=== PATIENT | female | born 1950 | race Caucasian/White ===

== ENCOUNTER 2020-01-12 15:30 | Inpatient (IN) | payer OTHER ==
[~2020-01-12] VITALS: Ht 160 cm; Wt 51.0 kg
--- NOTE | 2020-01-12 15:51 | NUR ---
DR Koenig at the bedside for MSE.
[2020-01-12] MEDS ORDERED: ALBUTEROL SULFATE 2.5 MG/3 ML NEBU NEB ONE (16:00)
[2020-01-12] MEDS ORDERED: IPRATROPIUM BROMIDE 0.5 MG/2.5 ML NEBU NEB ONE (16:00)
[2020-01-12] MEDS ORDERED: IPRATROPIUM BROMIDE 0.5 MG/2.5 ML NEBU ONE (16:15)
[2020-01-12] MEDS ORDERED: ALBUTEROL SULFATE 2.5 MG/3 ML NEBU ONE (16:15)
[2020-01-12 16:26] LABS: BASOPHILS # (AUTO) 0.3 K/uL (0.0-8.0); BASOPHILS % (AUTO) 1.2 % (0.0-2.0); HEMATOCRIT 35.8 % (31.2-41.9); HEMOGLOBIN 12.1 g/dL (10.9-14.3); LYMPHOCYTES # (AUTO) 0.2 K/uL (20.0-40.0); LYMPHOCYTES % (AUTO) 0.7 % (20.5-51.5); MEAN CORPUSCULAR HEMOGLOBIN 28.5 uug (24.7-32.8); MEAN CORPUSCULAR HGB CONC 34 g/dL (32.3-35.6); MEAN CORPUSCULAR VOLUME 84.8 fL (75.5-95.3); MONOCYTES # (AUTO) 0.2 K/uL (2.0-10.0); NEUTROPHILS # (AUTO) 21.2 K/uL (1.8-8.9); NEUTROPHILS % (AUTO) 97.1 % (38.5-71.5); PLATELET COUNT (AUTO) 203 K/uL (179-408); RED BLOOD CELL COUNT(AUTO) 4.23 MIL/uL (3.63-4.92); WHITE BLOOD COUNT (AUTO) 21.9 K/uL (3.8-11.8)
[2020-01-12 16:38] LABS: POTASSIUM 4.3 mmol/L (3.5-5.1)
[2020-01-12] MEDS ORDERED: methylPREDNISolone SOD SUCC 125 MG/2 ML VIAL IV ONE (16:45)
[2020-01-12 16:54] LABS: BILIRUBIN,DIRECT 0.1 mg/dL (0.0-0.2); BILIRUBIN,TOTAL 0.4 mg/dL (0.2-1.0); TOTAL PROTEIN, SERUM 6.5 g/dL (6.4-8.2)
[2020-01-12] MEDS ORDERED: methylPREDNISolone SOD SUCC 125 MG/2 ML VIAL ONE (17:01)
--- NOTE | 2020-01-12 17:53 | NUR ---
Dr Fairbanks spoke to ER MD for TELE admit.
--- NOTE | 2020-01-12 18:40 | NUR ---
Pt resting in bed,talking on the phone, no acute distress noted.
--- NOTE | 2020-01-12 19:13 | NUR ---
pt ok to admit under dr layton Dx: copd exacerbation tele rm pending hand off to floor pt at ra, +intact iv to r wrist coming in and out of the room easily redirectable
--- NOTE | 2020-01-12 19:32 | NUR ---
still waiting call back from RN at floor FOR REPORT
--- NOTE | 2020-01-12 19:53 | NUR ---
HAND OFF AND SBAR GIVEN TO PURVI ORTIZ
--- NOTE | 2020-01-12 20:01 | NUR ---
PT TRANSPORTED TO FLOOR VIA WHEELCHAIR ACC BY SAMI
[2020-01-12 20:30] VITALS: BP 156/87
[2020-01-12] MEDS ORDERED: ACETAMINOPHEN 325 MG TABLET PO PRN (20:45)
[2020-01-12] MEDS ORDERED: Z GUARD REMEDY PASTE 57 GM TUBE TOP PRN (20:45)
[2020-01-12] MEDS ORDERED: ZOLPIDEM 5 MG TABLET PO PRN (20:45)
[2020-01-12] MEDS ORDERED: DEXTROSE 50% 50 ML DISP.SYRIN IV PRN ×2 (20:45→22:15)
[2020-01-12] MEDS ORDERED: INSULIN REGULAR, HUMAN 300 UNIT/3 ML VIAL SQ PRN (20:45)
[2020-01-12] MEDS ORDERED: HYDROCODONE/APAP 5-325MG TABLET PO PRN (20:45)
[2020-01-12] MEDS ORDERED: LORAZEPAM 1 MG TABLET PO PRN (20:45)
[2020-01-12] MEDS ORDERED: ONDANSETRON 4 MG/2 ML VIAL IV PRN (20:45)
[2020-01-12] MEDS ORDERED: MAGNESIUM HYDROXIDE 30 ML LIQUID UDC PO PRN (20:45)
[2020-01-12] MEDS ORDERED: BLOOD SUGAR DIAGNOSTIC 1 EACH STRIP VI SCH (21:00)
[2020-01-12] MEDS ORDERED: TRAZODONE 100 MG TABLET PO SCH (21:00)
--- NOTE | 2020-01-12 21:00 | NUR ---
Received patient from ER. Dx; acute COPD exacerbation. Patient is A/Ox4. Ambulates with a steady gait. No signs of acute distress noted. SOB noted 95% on room air. Patient stated that breathing treatment from ER helped. Heplock on the right forearm is intact and patent. Patient oriented to unit and room. Safety measures initiated. Bed is low and locked, call light within reach. Will continue to monitor.
[2020-01-12] MEDS: GUAIFENESIN LA 600 MG TABLET.SA PO SCH (21:34)
[2020-01-12] MEDS: AZITHROMYCIN 250 MG TABLET PO SCH (21:34)
[2020-01-12] MEDS ORDERED: INSULIN REGULAR, HUMAN 300 UNITS/3 ML VIAL SQ PRN (22:15)
--- NOTE | 2020-01-12 22:17 | NUR ---
Checked patients blood sugar twice, was 583. Gave 10 unit insulin and spoke to Dr. Fairbanks. He is aware of this patient because she just came from [place] and he was her doctor there. Ordered to change sliding scale to aggressive. Will continue to monitor.
[2020-01-12] MEDS: QUETIAPINE FUMARATE 200 MG TABLET PO SCH (23:15)
[2020-01-13 00:45] VITALS: BP 137/78
[2020-01-13] MEDS: ALBUTEROL SULFATE 2.5 MG/3 ML NEBU NEB SCH ×6 (01:08→21:36)
[2020-01-13 04:00] VITALS: BP 146/65
[2020-01-13 06:24] LABS: BASOPHILS % (AUTO) 0.3 % (0.0-2.0); HEMATOCRIT 34.1 % (31.2-41.9); HEMOGLOBIN 11.6 g/dL (10.9-14.3); LYMPHOCYTES # (AUTO) 0.3 K/uL (20.0-40.0); LYMPHOCYTES % (AUTO) 3.6 % (20.5-51.5); MEAN CORPUSCULAR HEMOGLOBIN 29.4 uug (24.7-32.8); MEAN CORPUSCULAR HGB CONC 34 g/dL (32.3-35.6); MEAN CORPUSCULAR VOLUME 86.4 fL (75.5-95.3); MONOCYTES # (AUTO) 0.3 K/uL (2.0-10.0); MONOCYTES % (AUTO) 2.7 % (0.0-11.0); NEUTROPHILS # (AUTO) 8.8 K/uL (1.8-8.9); NEUTROPHILS % (AUTO) 93.4 % (38.5-71.5); PLATELET COUNT (AUTO) 160 K/uL (179-408); RED BLOOD CELL COUNT(AUTO) 3.94 MIL/uL (3.63-4.92); WHITE BLOOD COUNT (AUTO) 9.4 K/uL (3.8-11.8)
[2020-01-13] MEDS: BLOOD SUGAR DIAGNOSTIC 1 EACH STRIP VI SCH ×5 (06:42→21:32)
[2020-01-13 06:55] LABS: BILIRUBIN,TOTAL 0.5 mg/dL (0.2-1.0); CREATININE 0.9 mg/dL (0.6-1.3); PHOSPHOROUS 4.4 mg/dL (2.5-4.9); POTASSIUM 4.8 mmol/L (3.5-5.1); TOTAL PROTEIN, SERUM 5.8 g/dL (6.4-8.2)
[2020-01-13] MEDS: IPRATROPIUM BROMIDE 0.5 MG/2.5 ML NEBU NEB SCH ×4 (07:48→21:36)
[2020-01-13 07:57] VITALS: BP 139/74
[2020-01-13] MEDS: LINAGLIPTIN 5 MG TABLET PO SCH (08:39)
[2020-01-13] MEDS: CITALOPRAM 20 MG TABLET PO SCH (08:40)
[2020-01-13] MEDS: LISINOPRIL 20 MG TABLET PO SCH (08:40)
[2020-01-13] MEDS: GUAIFENESIN LA 600 MG TABLET.SA PO SCH ×2 (08:40→20:41)
[2020-01-13] MEDS: AMLODIPINE 10 MG TABLET PO SCH (08:40)
[2020-01-13] MEDS: INSULIN REGULAR, HUMAN 300 UNIT/3 ML VIAL SQ PRN ×3 (08:43→16:57)
[2020-01-13] MEDS ORDERED: MONTELUKAST SODIUM 10 MG TABLET PO SCH (09:00)
[2020-01-13] MEDS ORDERED: methylPREDNISolone SOD SUCC 40 MG/ML VIAL IV SCH (09:00)
[2020-01-13] MEDS ORDERED: Medication Not On Formulary EA (Sitagliptin Phosphate (Januvia) 100 MG) PO SCH (09:00)
--- NOTE | 2020-01-13 10:00 | NUR ---
Patient going down to smoke smoking cessation verbally discussed with patient with reinforcement needed it. Right after smoking session pt. requesting breathing treatment. Attending notified. orders for nocotine patch received.
[2020-01-13] MEDS ORDERED: ALBUTEROL SULFATE 2.5 MG/3 ML NEBU NEB SCH (11:30)
[2020-01-13] MEDS: NICOTINE 21 MG/24HR PATCH TD SCH (11:49)
[2020-01-13] MEDS: MONTELUKAST SODIUM 10 MG TABLET PO SCH (11:50)
[2020-01-13 12:08] VITALS: BP 160/68
--- NOTE | 2020-01-13 13:10 | NUR ---
At this time a call from Security department to notify that Ms. Mark is wondering downs-stairs, walking in and out of the hospital. Attending REE Hadley notified and at 1331 when patient back in her room she was educated of in patient regulations and restrictions.
--- NOTE | 2020-01-13 14:52 | NUR ---
Attending N.P. called to be notified of pt's refusal of continuous ekg monitoring, and non-compliance with in patient regulations.
[2020-01-13 15:40] VITALS: BP_SYST 122; BP_SYST 135; BP_DIAS 71; BP_DIAS 74
[2020-01-13 20:00] VITALS: BP 172/83
--- NOTE | 2020-01-13 20:20 | NUR ---
RECEIVED PATIENT AWAKE IN BED. A/O X4. APPEARS VERY ANXIOUS. BP ELEVATED 172/82. ALL OTHER VSS. PATIENT C/O VAGINAL ITCHING AND THRUSH IN MOUTH. CALLED OUT TO DR. JOHNSON TO INFORM OF ELEVATED BP AND OTHER COMPLAINTS. MD DID NOT WANT TO ORDER ANYTHING AT THIS TIME. LGSW NOTIFIED. PATIENT DENIES PAIN OR DISCOMFORT. ALL NEEDS ATTENDED. WILL CONTINUE TO MONITOR AND ASSESS.
[2020-01-13] MEDS: AZITHROMYCIN 250 MG TABLET PO SCH (20:40)
[2020-01-13] MEDS: methylPREDNISolone SOD SUCC 40 MG/ML VIAL IV SCH (20:40)
[2020-01-13] MEDS: QUETIAPINE FUMARATE 200 MG TABLET PO SCH (20:41)
[2020-01-13] MEDS ORDERED: TRAZODONE 100 MG TABLET PO SCH ×2 (21:00)
[2020-01-13] MEDS ORDERED: INSULIN GLARGINE,HUM 300 UNITS/3 ML CARTRIDGE SQ SCH (21:00)
[2020-01-13] MEDS ORDERED: QUETIAPINE FUMARATE 200 MG TABLET PO SCH (21:00)
--- NOTE | 2020-01-13 21:05 | NUR ---
PATIENTS BLOOD SUGAR, 69. PATIENT A/O X4. ASYMPTOMATIC. PATIENT GIVEN SNACK AND WILL RE-CHECK. WILL CONTINUE TO MONITOR AND ASSESS.
--- NOTE | 2020-01-13 21:35 | NUR ---
RECHECKED PATIENTS BLOOD SUGAR AND RECEIVED 80. WILL CONTINUE TO MONITOR AND ASSESS.
[2020-01-13] MEDS: LORAZEPAM 1 MG TABLET PO PRN (22:05)
[2020-01-14] MEDS: IPRATROPIUM BROMIDE 0.5 MG/2.5 ML NEBU NEB SCH ×4 (05:26→14:03)
[2020-01-14] MEDS: ALBUTEROL SULFATE 2.5 MG/3 ML NEBU NEB SCH ×4 (05:26→14:03)
[2020-01-14] MEDS: LORAZEPAM 1 MG TABLET PO PRN (06:01)
[2020-01-14] MEDS: BLOOD SUGAR DIAGNOSTIC 1 EACH STRIP VI SCH ×3 (06:10→16:30)
[2020-01-14 06:24] LABS: BASOPHILS % (AUTO) 0.1 % (0.0-2.0); HEMATOCRIT 33.2 % (31.2-41.9); HEMOGLOBIN 10.9 g/dL (10.9-14.3); LYMPHOCYTES # (AUTO) 0.4 K/uL (20.0-40.0); MEAN CORPUSCULAR HEMOGLOBIN 29.4 uug (24.7-32.8); MEAN CORPUSCULAR HGB CONC 33 g/dL (32.3-35.6); MEAN CORPUSCULAR VOLUME 89.3 fL (75.5-95.3); MONOCYTES # (AUTO) 0.3 K/uL (2.0-10.0); MONOCYTES % (AUTO) 2.9 % (0.0-11.0); PLATELET COUNT (AUTO) 146 K/uL (179-408); RED BLOOD CELL COUNT(AUTO) 3.72 MIL/uL (3.63-4.92); WHITE BLOOD COUNT (AUTO) 9.7 K/uL (3.8-11.8)
[2020-01-14 06:31] LABS: POTASSIUM 5.6 mmol/L (3.5-5.1)
[2020-01-14] MEDS: INSULIN REGULAR, HUMAN 300 UNIT/3 ML VIAL SQ PRN ×2 (06:35→11:53)
--- NOTE | 2020-01-14 08:00 | NUR ---
Patient is awake, alert and verbally responsive, ambulatory. No signs of distress noted. No SOB. No complain of Pain or discomfort. at 0800 Blood Sugar is 341, [employer]SERVATION [employer]INE[employer] kinjal made aware with New Order of Lantus 6 units x 1. all needs attended. will continue to monitor.
[2020-01-14] MEDS ORDERED: INSULIN REGULAR, HUMAN 300 UNIT/3 ML VIAL SQ ONE (08:30)
[2020-01-14] MEDS ORDERED: INSULIN GLARGINE,HUM 300 UNITS/3 ML CARTRIDGE SQ SCH (08:45)
[2020-01-14] MEDS ORDERED: INSULIN GLARGINE,HUM 300 UNITS/3 ML CARTRIDGE SQ ONE (08:45)
[2020-01-14] MEDS: methylPREDNISolone SOD SUCC 40 MG/ML VIAL IV SCH ×2 (09:00→09:12)
[2020-01-14] MEDS: CITALOPRAM 20 MG TABLET PO SCH (09:12)
[2020-01-14] MEDS: NICOTINE 21 MG/24HR PATCH TD SCH (09:13)
[2020-01-14] MEDS: LISINOPRIL 20 MG TABLET PO SCH (09:13)
[2020-01-14] MEDS: MONTELUKAST SODIUM 10 MG TABLET PO SCH (09:13)
[2020-01-14] MEDS: GUAIFENESIN LA 600 MG TABLET.SA PO SCH (09:13)
[2020-01-14] MEDS: AMLODIPINE 10 MG TABLET PO SCH (09:13)
[2020-01-14] MEDS: LINAGLIPTIN 5 MG TABLET PO SCH (09:13)
[2020-01-14] MEDS: FUROSEMIDE 20 MG/2 ML VIAL IV ONE ×2 (09:45→10:31)
[2020-01-14 11:00] VITALS: BP 145/81
[2020-01-14] MEDS ORDERED: LORAZEPAM 0.5 MG TABLET PO PRN (11:15)
[2020-01-14] MEDS ORDERED: predniSONE 20 MG TABLET PO SCH (11:30)
[2020-01-14] MEDS ORDERED: FUROSEMIDE 20 MG TABLET PO SCH (11:30)
[2020-01-14] MEDS ORDERED: HYDROCODONE/APAP 5-325MG TABLET PO PRN (15:00)
[2020-01-14] MEDS ORDERED: FLUCONAZOLE 100 MG TABLET PO ONE (15:48)
[2020-01-14 16:00] VITALS: BP 140/78
--- NOTE | 2020-01-14 16:30 | NUR ---
Patient refused Blood sugar check explained risk and benefits.
[2020-01-14] MEDS ORDERED: NYSTATIN SUSPENSION 5 ML LIQUID UDC PO SCH (17:00)
--- NOTE | 2020-01-14 19:13 | NUR ---
Patient is awake , alert and verbally responsive. No signs of distress noted noted. Patient with order to Discharge to [facility], Discharge Instruction given to patient and verbalized Understanding, All belongings was signed and dent with patient. Removed wrist band, patient was picked up by Dominique from Assisted living.
== END 2020-01-14 19:16 | DRG 140 ==
LOC: ER 15:34 → TELE3 19:18 → MEDSURG3 01-13 17:54
PROVIDERS: ADMIT Hospitalist; ATTEND Hospitalist
DX: J44.1 Chronic obstructive pulmonary disease with (acute) exacerbation (principal); J18.9 Pneumonia, unspecified organism; B37.0 Candidal stomatitis; E22.2 Syndrome of inappropriate secretion of antidiuretic hormone; E44.1 Mild protein-calorie malnutrition; E87.5 Hyperkalemia; E11.65 Type 2 diabetes mellitus with hyperglycemia; J44.0 Chronic obstructive pulmonary disease with (acute) lower respiratory infection; Z59.0 Homelessness; Z91.19 Patient's noncompliance with other medical treatment and regimen; Z91.11 Patient's noncompliance with dietary regimen; N39.0 Urinary tract infection, site not specified; Z91.14 Patient's other noncompliance with medication regimen; N64.59 Other signs and symptoms in breast; I70.0 Atherosclerosis of aorta; G89.29 Other chronic pain; M25.512 Pain in left shoulder; R00.0 Tachycardia, unspecified; Z88.0 Allergy status to penicillin; J98.11 Atelectasis; T38.0X5A Adverse effect of glucocorticoids and synthetic analogues, initial encounter; F17.210 Nicotine dependence, cigarettes, uncomplicated; I10 Essential (primary) hypertension; I34.0 Nonrheumatic mitral (valve) insufficiency; N63.20 Unspecified lump in the left breast, unspecified quadrant
CPT/HCPCS: 36415; 70030-TC; 71045; 83735; 84100; 85025; 93005; 94640; 94664; A4663; G0378; J1815; J1940; J2405; J2920; J2930; J3590; J7512; Q0144